=== PATIENT | male | born 1995 | race Caucasian/White ===

== ENCOUNTER 2018-10-05 12:33 | Emergency (ER) | payer OTHER, BC ==
[2018-10-05] MEDS ORDERED: HYDROmorphone 2 MG/ML Syringe IVPUSH ONE (12:53)
[2018-10-05] MEDS ORDERED: Acetaminophen/HYDROcodone 325-5 MG Tab ONE (13:10)
--- NOTE | 2018-10-05 15:17 | EDM.PDOC ---
ED HPI GENERAL MEDICAL PROBLEM - General Chief Complaint: General Stated Complaint: KNEE PAIN Time Seen by Provider: 10/05/18 12:45 Source of Information: Reports: Patient History Limitations: Reports: No Limitations - History of Present Illness INITIAL COMMENTS - FREE TEXT/NARRATIVE: According to patient he claims he has been having pain and swelling of his left knee for past 2-3 days now. The pain has gradually got worse, hurts if he stands for long time o does any turning, twisting or climbing activities. 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 He claims that this is a reoccurring pain and swelling. his work has triggered it as he works of the [employer] and has to climb and work on heavy equipment all day. Onset Date: 10/02/18 Location: Reports: Lower Extremity, Left Quality: Reports: Ache Severity: Moderate Improves with: Reports: None Worsens with: Reports: None Associated Symptoms: Denies: Confusion, Chest Pain, Cough, Diaphoresis, Fever/ Chills, Headaches, Nausea/Vomiting, Rash, Seizure, Shortness of Breath, Syncope , Weakness - Related Data Allergies Allergy/AdvReac Type Severity Reaction Status Date / Time No Known Allergies Allergy Verified 10/05/18 13:00 Home Meds: Home Meds NK [No Known Home Meds] 10/05/18 [History] ED ROS GENERAL - Review of Systems Review Of Systems: See Below Constitutional: Denies: Fever, Chills HEENT: Denies: Rhinitis, Throat Pain Respiratory: Denies: Cough, Sputum Cardiovascular: Denies: Chest Pain, Lightheadedness GI/Abdominal: Denies: Abdominal Pain, Nausea, Vomiting : Denies: Dysuria, Frequency Musculoskeletal: Reports: Joint Pain, Joint Swelling. Denies: Back Pain, Hand Pain, Leg Pain Skin: Denies: Bruising, Pruritis, Rash ED EXAM, GENERAL - Physical Exam Exam: See Below Exam Limited By: No Limitations General Appearance: Alert, WD/WN, No Apparent Distress Eye Exam: Bilateral Eye: EOMI, PERRL Ears: Normal External Exam, Normal Canal, Hearing Grossly Normal, Normal TMs Ear Exam: Bilateral Ear: Auricle Normal, Canal Normal, TM normal Nose: Normal Inspection, Normal Mucosa, No Blood Throat/Mouth: Normal Inspection, Normal Lips, Normal Teeth, Normal Gums, Normal Oropharynx, Normal Voice, No Airway Compromise Head: Atraumatic, Normocephalic Neck: Normal Inspection, Supple, Non-Tender, Full Range of Motion Respiratory/Chest: No Respiratory Distress, Lungs Clear, Normal Breath Sounds, No Accessory Muscle Use, Chest Non-Tender Cardiovascular: Normal Peripheral Pulses, Regular Rate, Rhythm, No Edema, No Gallop, No JVD, No Murmur, No Rub Extremities: Other (left knee: ther is definite swelling of the knee joint. No warmth felt. Good ROM and GAit. tender to patellar pressure and with varus strain. . ) Course - Vital Signs Text/Narrative:: Pt xray does show hardware in the proximal tibia. There is minimal joint effusion. Pt reassured. he did receive dilaudid 1mg Im as he rates his pain around 8/10. Started on Vicodin 5/325 1 every 6 hrs as needed and motrin 800mg 3 times daily for next 5 days.Advised intermittent heat to the joint 3-4 times daily. Rest for next 48 hrs. Ok to return to work on 10/07/18, but advised to avoid frequent twisting, Turing or climbing activities. Followup in clinic if symptoms persists or worsen. - Orders/Labs/Meds Orders: Active Orders 24 hr Category Date Time Status Knee 3V Lt [CR] Stat Exams 10/05/18 12:52 Taken Meds: Medications Discontinued Medications Generic Name Dose Route Start Last Admin Trade Name Mukeshq PRN Reason Stop Dose Admin Hydromorphone HCl 1 mg 10/05/18 12:53 10/05/18 12:46 Dilaudid IVPUSH 10/05/18 12:54 1 mg ONETIME ONE Administration Departure - Departure Time of Disposition: 13:30 Disposition: Home, Self-Care 01 Condition: Fair Clinical Impression: Knee pain, left - Discharge Information *PRESCRIPTION DRUG MONITORING PROGRAM REVIEWED*: Not Applicable *COPY OF PRESCRIPTION DRUG MONITORING REPORT IN PATIENT JASSON: Not Applicable Instructions: Knee Pain, Adult Forms: ED Department Discharge Additional Instructions: Take Hydrocodone 5/325 one tab every 6 hours as need for pain. May alternate with over the counter Motrin/Ibuprophen. Rest Knee and avoid climbing, twisting and heavy activity for 72 hours. - Problem List & Annotations (1) Knee pain, left SNOMED Code(s): 37095486 Code(s): M25.562 - PAIN IN LEFT KNEE Status: Acute - Problem List Review Problem List Initiated/Reviewed/Updated: Yes - My Orders Last 24 Hours: My Active Orders 10/05/18 12:52 Knee 3V Lt [CR] Stat - Assessment/Plan Last 24 Hours: My Active Orders 10/05/18 12:52 Knee 3V Lt [CR] Stat Assessment:: left knee pain with effusion Plan: Pt xray does show hardware in the proximal tibia. There is minimal joint effusion. Pt reassured. he did receive dilaudid 1mg Im as he rates his pain around 8/10. Started on Vicodin 5/325 1 every 6 hrs as needed and motrin 800mg 3 times daily for next 5 days.Advised intermittent heat to the joint 3-4 times daily. Rest for next 48 hrs. Ok to return to work on 10/07/18, but advised to avoid frequent twisting, Turing or climbing activities. Followup in clinic if symptoms persists or worsen.
--- NOTE | 2018-10-05 19:11 | CR ---
DATE OF SERVICE: 10/05/2018 CLINICAL DATA: Pain. LEFT KNEE: No priors. The patient is status post internal fixation of the proximal tibia and medial tibial plateau. No acute abnormalities. There is a moderate sized joint effusion. There are small osseous densities in the infrapatellar recess. The may be related to the prior surgery or prior trauma. Mild osteoarthritic changes. [id number] [facility]
== END 2018-10-05 13:27 | disposition home or self-care (01) ==
LOC: LB.ED 12:33
DX: M25.562 Pain in left knee (principal)
CPT/HCPCS: 73562; 96374; 99283; A9270; J1170